=== PATIENT | male | born 1940 | race Hispanic/Latino ===

== ENCOUNTER → 2019-09-01 | Outpatient (CLI) | payer MEDICARE | END | disposition home or self-care (01) | LOC: SHCH 15:36 | PROVIDERS: ATTEND Internal Medicine Cardiovascular Disease | DX: I65.23 Occlusion and stenosis of bilateral carotid arteries (principal) | CPT/HCPCS: 93880 ==

== ENCOUNTER → 2019-12-27 | Outpatient (CLI) | payer MEDICARE | END | disposition home or self-care (01) | LOC: OIH 13:54 | PROVIDERS: ATTEND Family Medicine | DX: M47.816 Spondylosis without myelopathy or radiculopathy, lumbar region (principal); M48.061 Spinal stenosis, lumbar region without neurogenic claudication; M25.78 Osteophyte, vertebrae; Z90.49 Acquired absence of other specified parts of digestive tract; M47.814 Spondylosis without myelopathy or radiculopathy, thoracic region; I70.0 Atherosclerosis of aorta; M25.551 Pain in right hip | CPT/HCPCS: 71046; 72100; 73502 ==

== ENCOUNTER → 2020-02-02 | Outpatient (CLI) | payer MEDICARE | END | disposition home or self-care (01) | LOC: RAH 14:39 | PROVIDERS: ATTEND Family Medicine | DX: M48.07 Spinal stenosis, lumbosacral region (principal); M47.27 Other spondylosis with radiculopathy, lumbosacral region; M25.78 Osteophyte, vertebrae; M51.26 Other intervertebral disc displacement, lumbar region; M06.4 Inflammatory polyarthropathy | CPT/HCPCS: 72148 ==

== ENCOUNTER 2021-02-14 11:49 | Day surgery (SDC) | payer MEDICARE ==
[2021-02-13 15:58] VITALS: BP 177/85
[~2021-02-14] VITALS: Ht 160 cm; Wt 63.7 kg
[2021-02-14 12:05] VITALS: BP 127/67
[2021-02-14] MEDS ORDERED: LIDOCAINE HCL 1% 20 ML VIAL ONE (12:06)
[2021-02-14] MEDS ORDERED: BUPIVACAINE/PF 0.5% 30ML VIAL ONE (12:08)
[2021-02-14] MEDS ORDERED: SODIUM CHLORIDE 0.9% 1000ML 1,000 ML IV ONE (12:08)
[2021-02-14] MEDS ORDERED: METF-444 PO (12:28)
[2021-02-14] MEDS ORDERED: LISI20TA24 PO (12:28)
[2021-02-14] MEDS ORDERED: METO100T14 PO (12:28)
[2021-02-14] MEDS ORDERED: HYDR25TA PO (12:28)
[2021-02-14] MEDS ORDERED: ROSU10TA28 PO (12:28)
[2021-02-14] MEDS ORDERED: IOPAMIDOL 10 ML VIAL ONE (12:50)
[2021-02-14 13:10] VITALS: BP 129/84
[2021-02-14 13:25] VITALS: BP 120/65
[2021-02-14 13:40] VITALS: BP 116/68
[2021-02-14 13:55] VITALS: BP 112/63
== END 2021-02-14 14:00 ==
LOC: DAH 11:49
PROVIDERS: ATTEND Family Medicine Sports Medicine
DX: M51.16 Intervertebral disc disorders with radiculopathy, lumbar region (principal); E78.5 Hyperlipidemia, unspecified; I25.10 Atherosclerotic heart disease of native coronary artery without angina pectoris; Z95.1 Presence of aortocoronary bypass graft; Z90.49 Acquired absence of other specified parts of digestive tract; Z98.890 Other specified postprocedural states; Z20.828 Contact with and (suspected) exposure to other viral communicable diseases; Z79.84 Long term (current) use of oral hypoglycemic drugs; Z79.899 Other long term (current) drug therapy
CPT/HCPCS: 62323; 82948; A4215 ×2; A4221; A4222; A4223; A4606; A4615; A4657; A4663; C9803; J7030; Q9966; U0003; 62320; 77003; J1030; J3490

== ENCOUNTER → 2023-11-16 | Outpatient (CLI) | payer MEDICARE ==
[~2023-11-16] MED LIST: HYDR25TA PO; IOHEXOL-350 75 ML VIAL IV ONE; LISI20TA24 PO; METF-444 PO; METO100T14 PO; ROSU10TA28 PO
== END | disposition home or self-care (01) ==
LOC: RAH 08:00
PROVIDERS: ATTEND Family Medicine
DX: N20.0 Calculus of kidney (principal); K57.90 Diverticulosis of intestine, part unspecified, without perforation or abscess without bleeding; N28.89 Other specified disorders of kidney and ureter; I25.10 Atherosclerotic heart disease of native coronary artery without angina pectoris; Z98.890 Other specified postprocedural states; M47.815 Spondylosis without myelopathy or radiculopathy, thoracolumbar region
CPT/HCPCS: 74170; Q9967

== ENCOUNTER 2024-11-21 09:48 | Emergency (ER) | payer MEDICARE ==
[~2024-11-21] VITALS: Ht 157.5 cm; Wt 63.5 kg
[~2024-11-21 09:48] MED LIST changes: -IOHEXOL-350 75 ML VIAL IV ONE; -ROSU10TA28 PO; +ROSU10TA72 PO
[2024-11-21] MEDS: PANTOPrazole 40 MG/VIAL IVP ONE (10:30)
[2024-11-21 10:45] LABS: BASOPHILS # (AUTO) 0.03 K/uL (0.00-0.20); BASOPHILS % (AUTO) 0.3 % (0.0-5.0); EOSINOPHILS # (AUTO) 0.03 K/uL (0.00-0.70); EOSINOPHILS % (AUTO) 0.3 % (0.0-8.0); HEMATOCRIT 39.8 % (42-54); IMMATURE GRANULOCYTE ABSOLUTE 0.11 K/uL (0-1); LYMPHOCYTES # (AUTO) 0.7 K/uL (1.0-4.8); LYMPHOCYTES % (AUTO) 6.8 % (21.0-51.0); MEAN CORPUSCULAR HEMOGLOBIN 33.3 pg (27.0-33.0); MEAN CORPUSCULAR HGB CONC 33.7 g/dL (32.0-36.0); MEAN CORPUSCULAR VOLUME 98.8 fL (79-99); MONOCYTES # (AUTO) 0.9 K/uL (0.1-1.0); MONOCYTES % (AUTO) 8.9 % (3.0-13.0); NEUTROPHILS # (AUTO) 7.9 K/uL (1.8-7.7); NEUTROPHILS % (AUTO) 82.6 % (40.0-77.0); PLATELET COUNT (AUTO) 148 K/uL (130-400); RED BLOOD CELL COUNT(AUTO) 4.03 MIL/uL (4.50-6.20); RED CELL DISTRIBUTION WIDTH 12.4 % (11.0-15.5); WHITE BLOOD COUNT (AUTO) 9.6 K/uL (4.8-10.8)
[2024-11-21 10:55] LABS: INR 0.97 (0.85-1.15); PROTHROMBIN TIME 10.9 SEC (9.6-11.6)
[2024-11-21 10:57] LABS: PARTIAL THROMBOPLASTIN TIME 26.7 SEC (26.3-35.5)
--- NOTE | 2024-11-21 10:57 | EKG ---
[facility] Test Date: 2024-11-21 Test Time: 10:03:13 Pat Name: PAT BURR Department: [facility] Room: Gender: Supervisor Statement Clerks: 0723 : 1940 Requested By: JOANAN LAMA Order Number: [id number] Reading MD: Юлия Diallo Measurements Intervals [place] Rate: 64 P: 88 MT: 108 QRS: 47 QRSD: 119 T: 64 QT: 423 QTc: 436 Interpretive Statements Sinus rhythm Nonspecific intraventricular conduction delay No previous ECG available for comparison Electronically Signed On 11-21-2024 18:08:51 SENIOR NET C DEVELOPER by Юлия Diallo Please click the below link to view image of tracing.
[2024-11-21 11:03] LABS: CREATININE 1.1 mg/dL (0.5-1.3); POTASSIUM 3.5 mmol/L (3.5-5.1)
[2024-11-21 11:08] LABS: MAGNESIUM 1.8 mg/dL (1.80-2.40)
--- NOTE | 2024-11-21 11:25 | ERN ---
General Chief Complaint: Chest Pain Stated Complaint: CP X 3 DAYS Time Seen by MD: 09:50 Source: patient, family History of Present Illness Initial Comments PATIENT IS A AN 84-YEAR-OLD GENTLEMAN COMING IN TO BE EVALUATED FOR CHEST PRESSURE. PER PATIENT THIS HAS BEEN ONGOING FOR THREE DAYS. HE ALSO STATES THAT IS PRESSURE BEGAN SHORTLY AFTER STARTING HIS PREDNISONE TREATMENT FOR URI SYMPTOMS. NO FEVER OR CHILLS CURRENTLY. Allergies: Coded Allergies: No Known Allergies (Verified Allergy, Unknown, 02/12/21) Home Meds Reported Medications Rosuvastatin Calcium (Rosuvastatin Calcium) 10 Mg Tablet, 10 MG PO DAILY, TAB 02/14/21 Metoprolol Tartrate (Metoprolol Tartrate) 100 Mg Tablet, 100 MG PO DAILY, TAB 02/14/21 Hydrochlorothiazide (Hydrochlorothiazide) 25 Mg Tablet, 25 MG PO DAILY, TAB 02/14/21 Lisinopril (Lisinopril) 20 Mg Tablet, 20 MG PO DAILY, TAB 02/14/21 Metformin HCl (Metformin HCl) 500 Mg Tablet, 500 MG PO DAILY, TAB 02/14/21 Past Medical History Past Medical History: Diabetes-Type II, High Cholesterol, Hypertension, [place] Past Surgical History: Cholecystectomy, CABG, Other Surgical History Other: HERNIA ROS Dictation CONSTITUTIONAL: NO CHILLS, NO FEVER, NO WEAKNESS, NO DIAPHORESIS, NO MALAISE. HEAD/FACE: NO SIGNS OF TRAUMA. EENT: NO EYE PAIN, NO BLURRED VISION, NO TEARING, NO DOUBLE VISION, NO EAR PAIN, NO EAR DISCHARGE, NO NOSE PAIN, NO NASAL CONGESTION, NO THROAT PAIN, NO THROAT SWELLING, NO MOUTH PAIN. RESPIRATORY: NO COUGH, NO ORTHOPNEA, NO SOB, NO STRIDOR, NO WHEEZING. CARDIOVASCULAR: CHEST PAIN, NO EDEMA, NO PALPITATIONS, NO SYNCOPE. GASTROINTESTINAL/ABDOMINAL: NO ABDOMINAL PAIN, NO CONSTIPATION, NO DIARRHEA, NO NAUSEA, NO VOMITING. GENITOURINARY: NO ABNORMAL DISCHARGE, NO DYSURIA, NO FREQUENT URINATION, NO HEMATURIA. NO COMPLAINTS OF PAIN IN THE GENITALS. MUSCULOSKELETAL: NO BACK PAIN, NO GOUT, NO JOINT PAIN, NO JOINT SWELLING, NO MUSCLE PAIN, NO MUSCLE STIFFNESS, NO NECK PAIN. INTEGUMENTARY: NO CHANGE IN COLOR, NO CHANGE IN HAIR/NAILS, NO DRYNESS, NO LESION, NO LUMPS, NO RASH. NEUROLOGICAL/PSYCH: NO ANXIETY, NOT DEPRESSED, NO EMOTIONAL PROBLEM, NO HEADACHE, NO NUMBNESS, NO PRE-EXISTING DEFICIT, NO HISTORY OF SEIZURES, NO ARJUN MORS, NO WEAKNESS. HEMATOLOGIC/LYMPHATIC: NOT ANEMIC, NO HISTORY OF BLOOD CLOTS, NO APPARENT BLEEDING, NO BRUISING, GLANDS NOT SWOLLEN. ALL SYSTEMS NEGATIVE, EXCEPT NOTED. Physical Exam Physical Exam Dictation VITAL SIGNS: REVIEWED. GENERAL APPEARANCE: ALERT, ORIENTED X3, NO ACUTE DISTRESS, OBESE. HEAD AND FACE: NON-TRAUMATIC. EYES: PERRL, PINK CONJUNCTIVAS, EYELID NO TRAUMA, ANTERIOR CHAMBER CLEAR. EARS: PINNAS INTACT AND NO SIGNS OF TRAUMA OR ERYTHEMA. EAR CANALS CLEAR AND NO DISCHARGE. TMS NO ERYTHEMA. NOSE: NO DISCHARGE, NO BLEEDING. OROPHARYNX: MOUTH NORMAL, TEETH NO CARIES, TONGUE PINK. PHARYNX CLEAR, NO ERYTHEMA. TONSILS NO EXUDATES, NO ABSCESSES NOTED. MUCOUS MEMBRANE MOIST. NECK: SUPPLE, NON-TENDER, NO THYROMEGALY, NO MASSES, NO JVD, NO BRUITS. BREAST: DEFERRED. CHEST: NO TENDERNESS, NO CREPITUS, NO PARADOXICAL MOVEMENT, NO RETRACTIONS. LUNGS: CLEAR, WELL-VENTILATED, SYMMETRIC, NO RALES, NO WHEEZING, NO RHONCHI, NO STRIDOR, GOOD BREATH SOUNDS BILATERALLY. HEART: REGULAR RATE, REGULAR RHYTHM, NO MURMUR, NO GALLOPS. VASCULAR: NO PERIPHERAL EDEMA. ABDOMEN: SOFT, POSITIVE BOWEL SOUNDS, NONDISTENDED, NO GUARDING, NONTENDER, NO REBOUND, NO MASSES NO HEPATOMEGALY, NO SPLENOMEGALY, NO CRUZ'S SIGN, NO HERNIAS. RECTAL: DEFERRED. GENITAL: DEFERRED. NEUROLOGICAL: NORMAL SPEECH, GROSS MOTOR FUNCTION INTACT, GROSS SENSORY FUNCTION INTACT. MUSCULOSKELETAL: NECK NONTENDER, FULL RANGE OF MOTION, BACK NONTENDER, FULL RANGE OF MOTION. EXTREMITIES: NONTENDER, FULL RANGE OF MOTION. SKIN: COLOR PINK, DRY, NO TURGOR, NO RASH, NO LACERATIONS, NO ABRASIONS, NO CONTUSIONS. LYMPHATICS: DEFERRED. Results Laboratory and Microbiology Lab and Micro Result Laboratory Tests Test 11/21/24 10:35 11/21/24 11:40 11/21/24 14:13 White Blood Count 9.6 K/uL (4.8-10.8) Red Blood Count 4.03 MIL/uL (4.50-6.20) L Hemoglobin 13.4 g/dL (14.0-18.0) L Hematocrit 39.8 % (42-54) L Mean Corpuscular Volume 98.8 fL (79-99) Mean Corpuscular Hemoglobin 33.3 pg (27.0-33.0) H Mean Corpuscular Hemoglobin Concent 33.7 g/dL (32.0-36.0) Red Cell Distribution Width 12.4 % (11.0-15.5) Platelet Count 148 K/uL (130-400) Mean Platelet Volume 10.9 fL (7.5-10.5) H Immature Granulocyte % (Auto) 1.1 % (0-1) H Neutrophils (%) (Auto) 82.6 % (40.0-77.0) H Lymphocytes (%) (Auto) 6.8 % (21.0-51.0) L Monocytes (%) (Auto) 8.9 % (3.0-13.0) Eosinophils (%) (Auto) 0.3 % (0.0-8.0) Basophils (%) (Auto) 0.3 % (0.0-5.0) Neutrophils # (Auto) 7.9 K/uL (1.8-7.7) H Lymphocytes # (Auto) 0.7 K/uL (1.0-4.8) L Monocytes # (Auto) 0.9 K/uL (0.1-1.0) Eosinophils # (Auto) 0.03 K/uL (0.00-0.70) Basophils # (Auto) 0.03 K/uL (0.00-0.20) Absolute Immature Granulocyte (auto 0.11 K/uL (0-1) Nucleated Red Blood Cells 0.0 % (0.0-0.19) White Cell Morphology Comment See comments Prothrombin Time 10.9 SEC (9.6-11.6) Prothromb Time International Ratio 0.97 (0.85-1.15) Activated Partial Thromboplast Time 26.7 SEC (26.3-35.5) Sodium Level 141 mmol/L (136-145) Potassium Level 3.5 mmol/L (3.5-5.1) Chloride Level 104 mmol/L (101-111) Carbon Dioxide Level 31 mmol/L (21-32) Blood Urea Nitrogen 22 mg/dL (7-18) H Creatinine 1.1 mg/dL (0.5-1.3) Glomerular Filtration Rate Calc 66 mL/min (>90) Random Glucose 133 mg/dL (70-105) H Total Calcium 8.4 mg/dL (8.5-10.1) L Magnesium Level 1.80 mg/dL (1.80-2.40) Total Creatine Kinase 55 U/L (21-232) Troponin I High Sensitivity 13 ng/L (4-75) 13 ng/L (4-75) B-Type Natriuretic Peptide 652 pg/mL (0-100) H Urine Color LIGHT-YELLOW (YELLOW) Urine Appearance CLEAR (CLEAR) Urine pH 5.0 (5.0-8.0) Urine Specific [place] 1.015 (1.001-1.031) Urine Protein NEGATIVE mg/dL (NEGATIVE) Urine Glucose (UA) 50 mg/dL (NEGATIVE) H Urine Ketones NEGATIVE mg/dL (NEGATIVE) Urine Occult Blood SMALL (NEGATIVE) H Urine Nitrate NEGATIVE (NEGATIVE) Urine Bilirubin NEGATIVE mg/dL (NEGATIVE) Urine Urobilinogen 0.2 mg/dL (0.2-1.0) Urine Leukocyte Esterase NEGATIVE Azeb/uL Urine RBC 2-5 /HPF (0-1) H Urine WBC 0-1 /HPF (0-1) Urine Bacteria None /HPF (None Seen) Labs Reviewed?: Yes EKG/XRAY/US/CT/MRI EKG Comment 11/21/2024 TIME 10:03 A.M. VENTRICULAR RATE 64 SINUS RHYTHM LA [address] WAVE ELEVATION OR DEPRESSION X-RAY Comment [address] [address] [place] [address] IMAGING REPORT Signed PATIENT: PAT BURR MR#: [id number] : 1940 SEX: M AGE: 84 LOCATION: [facility] ORDER [id number] STATUS: REG ER REPORT#: [id number] SERVICE 1001 REASON: cp ORDERING PHYSICIAN: JOANNA LAMA MD PROCEDURE: CXR1VW - CHEST 1VW Exam Type: CHEST 1VW Clinical Information: cp Comparison: None Findings: There is cardiomegaly and there is status post median sternotomy. The lungs are clear of infiltrates. Impression: Clear lungs. DICTATED BY: VY STORY MD DATE: 11/21/24 112 ELECTRONICALLY SIGNED BY: VY STORY MD DATE: 11/21/24 112 MDM MDM: DIFFERENTIAL DIAGNOSIS: CHF EXACERBATION, GASTRITIS, ED Course Orders Procedure Category Date Status Time Cbc With Differential LAB 11/21/24 Complete 09:53 12 Lead Ekg Tracing- EKG 11/21/24 Complete Technical 09:59 Prothrombin Time With LAB 11/21/24 Complete INR 10:01 B-Type Natriuretic LAB 11/21/24 Complete Peptide 10:01 Chest 1vw RAD 11/21/24 Resulted 10:01 Magnesium LAB 11/21/24 Complete 10:01 Creatine Kinase, Total LAB 11/21/24 Complete 10:01 Troponin I High LAB 11/21/24 Complete Sensitivity 10:01 Urinalysis Profile LAB 11/21/24 Complete 10:01 Partial LAB 11/21/24 Complete Thromboplastin Time 10:01 Basic Metabolic Panel LAB 11/21/24 Complete 10:01 Pantoprazole 40mg Inj PHA 11/21/24 Complete (Protonix 40mg Inj 10:30 Troponin I High LAB 11/21/24 Complete Sensitivity 11:16 Furosemide 20mg Vial PHA 11/21/24 Complete (Lasix 20mg Vial) 11:30 Current Medications Medications (Trade) Dose Ordered Sig/Lily Route PRN Reason Start Time Stop Time Status Last Admin Dose Admin Furosemide (LASix 20MG VIAL) 20 mg ONCE ONCE IV 11/21/24 11:30 11/21/24 11:31 DC 11/21/24 11:30 Pantoprazole Sodium (PROTonix 40MG INJ) 40 mg ONCE ONCE IVP 11/21/24 10:30 11/21/24 10:31 DC 11/21/24 10:30 Vital Signs Date Time Temp Pulse Resp B/P (MAP) Pulse Ox O2 Delivery O2 Flow Rate FiO2 11/21/24 14:35 98.8 88 20 158/63 100 Room Air* 0 21 11/21/24 09:48 98.6 68 20 178/90 98 Room Air 0 DX & DISP Departure Condition: Stable Referrals: LITTLE BURKS MD (PCP) JOANNA LAMA MD Nov 21, 2024 11:25
[2024-11-21] MEDS: furoSEMIDE 20MG VIAL IV ONE (11:30)
--- NOTE | 2024-11-21 14:00 | NUR ---
ASSUMED CARE AT THIS TIME. BROUGHT IN FROM ER LOBBY INTO INTERNAL WAITING AREA FOR MED PASS AND ASSESSMENT.
[2024-11-21 14:26] LABS: APPEARANCE,URINE CLEAR (CLEAR); BILIRUBIN,URINE NEGATIVE (NEGATIVE); COLOR,URINE LIGHT-YELLOW (YELLOW); GLUCOSE, URINE (UA) 50 mg/dL (NEGATIVE); KETONES,URINE NEGATIVE (NEGATIVE); LEUKOCYTE ESTERASE ,URINE NEGATIVE Leu/uL (NEGATIVE); NITRATE,URINE NEGATIVE (NEGATIVE); OCCULT BLOOD,URINE SMALL (NEGATIVE); PROTEIN,URINE NEGATIVE (NEGATIVE); UROBILINOGEN,URINE 0.2 mg/dL (0.2-1.0)
[2024-11-21 14:44] LABS: ADD UA MICROSCOPIC YES
[2024-11-21 14:46] LABS: MUCUS,URINE RARE LPF (None Seen); WBC,URINE 0-1 /HPF (0-1)
[2024-11-21 15:01] VITALS: BP 151/62; PULSE 86; RESP 20; TEMP 98.8; O2SAT 98
== END 2024-11-21 15:03 | disposition home or self-care (01) ==
LOC: EDH 09:48
DX: R07.89 Other chest pain (principal); E11.9 Type 2 diabetes mellitus without complications; E78.00 Pure hypercholesterolemia, unspecified; I10 Essential (primary) hypertension; Z79.84 Long term (current) use of oral hypoglycemic drugs; Z79.899 Other long term (current) drug therapy; Z90.49 Acquired absence of other specified parts of digestive tract; Z95.1 Presence of aortocoronary bypass graft
CPT/HCPCS: 99285; 96374; 71045; 96375; 82550; 83735; 84484 ×2; 80048; 83880; 85025; 85610; 85730; 81001; 36415; 93005; J1940; J2470

== ENCOUNTER → 2024-11-22 | Outpatient (CLI) | payer MEDICARE ==
--- NOTE | 2024-11-22 17:19 | HMCSR ---
APPROVED REPORT Bilateral Lower Extremity Venous Study for DVT., Venous Competence. Indications i87.1, i87.2 Vein Imaging CFV (R): Normal flow, augmentation and compression. No evidence of DVT. 9.4mm 2517ms of reflux. SFJ (R): Normal flow, augmentation and compression. No evidence of DVT. FEM (R): Normal flow, augmentation and compression. No evidence of DVT. POP (R): Normal flow, augmentation and compression. No evidence of DVT. DFV (R): Normal flow, augmentation and compression. No evidence of DVT. PTV (R): Normal flow, augmentation and compression. No evidence of DVT. Peroneals (R): Normal flow, augmentation and compression. No evidence of DVT. CFV (L): Normal flow, augmentation and compression. No evidence of DVT. 9.2mm 833ms of reflux. SFJ (L): Normal flow, augmentation and compression. No evidence of DVT. FEM (L): Normal flow, augmentation and compression. No evidence of DVT. POP (L): Normal flow, augmentation and compression. No evidence of DVT. DFV (L): Normal flow, augmentation and compression. No evidence of DVT. PTV (L): Normal flow, augmentation and compression. No evidence of DVT. Peroneals (L): Normal flow, augmentation and compression. No evidence of DVT. Technologist Impression Deep veins of the bilateral lower extremities appear patent and compressible without thrombus. Deep venous reflux noted in the RCFV. Superficial venous insufficiency noted in the RGSV at calf. RGSV junction 4.7mm 0.0ms thigh 1.4mm 0.0ms knee 1.6mm 0.0ms calf 2.9mm 1933ms RSSV prox 1.3mm 0.0ms mid 1.7mm 0.0ms LGSV junction 3.0mm 0.0ms not seen distally LSSV prox 1.9mm 0.0ms mid 2.4mm 0.0ms Conclusion Deep venous reflux noted in the RCFV. Superficial venous insufficiency noted in the RGSV at calf. No DVT Conclusion Deep venous reflux noted in the RCFV. Superficial venous insufficiency noted in the RGSV at calf. No DVT
== END | disposition home or self-care (01) ==
LOC: SHCH 10:52
PROVIDERS: ATTEND Internal Medicine Cardiovascular Disease
DX: I87.2 Venous insufficiency (chronic) (peripheral) (principal); I87.1 Compression of vein
CPT/HCPCS: 93970

== ENCOUNTER → 2024-12-01 | Outpatient (CLI) | payer MEDICARE ==
--- NOTE | 2024-12-01 15:15 | HMCIMG ---
CT LOW EXT W/O CONTRAST REASON: BILAT FEET, INFLAMMATORY POLYARTHOPATHY Technique: Axial images are obtained from distal tibia and fibula through the feet, both feet were included. Sagittal and coronal reconstruction images were then performed. Exam was performed without IV contrast. Comparison: None FINDINGS: There is normal appearance of the distal tibia and fibula. Talus and calcaneus appear unremarkable. Bones of the ethmoid midfoot appear normal as do metatarsals and phalanges. There is no evidence of fracture or osteomyelitis. Soft tissues appear normal. There are no focal masses. There is no visible edema. IMPRESSION: 1. Negative noncontrast to exam of the right and left foot and ankle.
== END | disposition home or self-care (01) ==
LOC: RAH 12:43
PROVIDERS: ATTEND Family Medicine
DX: M06.4 Inflammatory polyarthropathy (principal)
CPT/HCPCS: 73700

== ENCOUNTER 2025-03-01 15:43 | Emergency (ER) | payer MEDICARE ==
[~2025-03-01] VITALS: Ht 160 cm; Wt 63.5 kg
[2025-03-01 16:17] LABS: BASOPHILS # (AUTO) 0.02 K/uL (0.00-0.20); BASOPHILS % (AUTO) 0.3 % (0.0-5.0); EOSINOPHILS # (AUTO) 0.11 K/uL (0.00-0.70); EOSINOPHILS % (AUTO) 1.6 % (0.0-8.0); HEMATOCRIT 32.9 % (42-54); IMMATURE GRANULOCYTE ABSOLUTE 0.04 K/uL (0-1); LYMPHOCYTES % (AUTO) 14.2 % (21.0-51.0); MEAN CORPUSCULAR HEMOGLOBIN 34.7 pg (27.0-33.0); MEAN CORPUSCULAR VOLUME 101.9 fL (79-99); MONOCYTES # (AUTO) 0.7 K/uL (0.1-1.0); NEUTROPHILS % (AUTO) 73.3 % (40.0-77.0); PLATELET COUNT (AUTO) 218 K/uL (130-400); RED BLOOD CELL COUNT(AUTO) 3.23 MIL/uL (4.50-6.20); RED CELL DISTRIBUTION WIDTH 12.6 % (11.0-15.5); WHITE BLOOD COUNT (AUTO) 6.8 K/uL (4.8-10.8)
[2025-03-01 16:30] LABS: CREATININE 1.2 mg/dL (0.5-1.3); POTASSIUM 3.8 mmol/L (3.5-5.1)
--- NOTE | 2025-03-01 17:01 | HMCIMG ---
US VENOUS DOPPLER UNILATERAL HISTORY: Leg swelling COMPARISON: None TECHNIQUE: Left lower extremity venous Doppler ultrasound study was performed. FINDINGS: The left common femoral, femoral, popliteal, and posterior tibial veins are visualized. Normal flow with augmentation and compressibilities are demonstrated. Left greater saphenous vein is patent. IMPRESSION: 1. No evidence of deep venous thrombosis is seen.
--- NOTE | 2025-03-01 17:05 | HMCIMG ---
US ARTERIAL UNILA LOW EXT DUPL HISTORY: Leg pain COMPARISON: None TECHNIQUE: Left lower extremity arterial Doppler ultrasound study was performed. FINDINGS: Left groin hematoma is seen measuring 4 x 4.5 x 1.5 cm. Left femoral stent is seen. Triphasic and biphasic arterial waveforms are seen in the left superficial femoral, tibial arteries. Abnormal monophasic arterial waveform is seen in the left posterior tibial, anterior tibial and dorsalis pedal arteries. Elevated velocity is seen of the left common femoral artery suspicious for stenosis. On the left, the peak systolic velocity of the common femoral artery is 215 cm/s, the proximal femoral artery is 185 cm/s, the mid femoral artery is 101 cm/s, the distal femoral artery is 131 cm/s, the proximal popliteal artery is 97 cm/s, the distal popliteal artery is 66 cm/s, the anterior tibial artery is 31 cm/s, the posterior tibial artery artery is 109 cm/s,and the dorsalis pedal artery is 34 cm/s. IMPRESSION: 1. Atherosclerotic disease. 2. Abnormal monophasic arterial waveform is seen in the left posterior tibial, anterior tibial and dorsalis pedal arteries. Elevated velocity is seen of the left common femoral artery suspicious for stenosis.
[2025-03-01] MEDS ORDERED: GABA300T26 PO (17:07)
[2025-03-01] MEDS ORDERED: [UNRECOGNIZED DRUG - CODE] PO (17:09)
--- NOTE | 2025-03-01 17:32 | HMCIMG ---
PORTABLE CHEST RADIOGRAPH INDICATION: chest pain COMPARISON: None FINDINGS: Median sternotomy wires are in appropriate alignment. Heart size is normal. Mild calcific plaque is present along the aortic arch moon. Left perihilar cardiac surgical clips. The pulmonary vascularity and quyen appear normal. No abnormal pulmonary parenchymal opacity or consolidation identified. No significant pleural effusion noted. No pneumothorax detected. Mid thoracic spine neurostimulator lead tips. IMPRESSION: No radiographic evidence for any acute cardiopulmonary process.
--- NOTE | 2025-03-01 18:07 | ERN ---
General Chief Complaint: Lower Extremity Pain/Injury Stated Complaint: PAIN TO INNER LEFT THIGH Time Seen by MD: 15:46 History of Present Illness Initial Comments 84-year-old male presents for bruising to the left groin. Last week patient had an angiogram of the leg with stent placement of the left femoral artery. Reports that he had some swelling but today there is a lot of bruising which was concerning. No other symptoms. Minimal pain. Allergies: Coded Allergies: No Known Allergies (Verified Allergy, Unknown, 02/12/21) Home Meds Reported Medications Vit D3/Folic/B6/B12/Acetylcyst ([place] Tablet) 20 Mcg-1MG Tablet, 1 EACH PO DAILY, TAB 03/01/25 Gabapentin Enacarbil (Horizant) 300 Mg Tab.er.24h, 300 MG PO DAILY, TAB 03/01/25 Rosuvastatin Calcium (Rosuvastatin Calcium) 10 Mg Tablet, 10 MG PO DAILY, TAB 02/14/21 Metoprolol Tartrate (Metoprolol Tartrate) 100 Mg Tablet, 100 MG PO DAILY, TAB 02/14/21 Hydrochlorothiazide (Hydrochlorothiazide) 25 Mg Tablet, 25 MG PO DAILY, TAB 02/14/21 Lisinopril (Lisinopril) 20 Mg Tablet, 20 MG PO DAILY, TAB 02/14/21 Metformin HCl (Metformin HCl) 500 Mg Tablet, 500 MG PO DAILY, TAB 02/14/21 Past Medical History Past Medical History: Diabetes-Type II, High Cholesterol, Hypertension, [place] Past Surgical History: Cholecystectomy, CABG, Other Surgical History Other: HERNIA ROS Dictation CONSTITUTIONAL: No chills, no fever, no weakness, no diaphoresis, no malaise. HEAD/FACE: No signs of trauma. EENT: No eye pain, no blurred vision, no tearing, no double vision, no ear pain, no ear discharge, no nose pain, no nasal congestion, no throat pain, no throat swelling, no mouth pain. RESPIRATORY: No cough, no orthopnea, no SOB, no stridor, no wheezing. CARDIOVASCULAR: No chest pain, no edema, no palpitations, no syncope. GASTROINTESTINAL/ABDOMINAL: No abdominal pain, no constipation, no diarrhea, no nausea, no vomiting. GENITOURINARY: No abnormal discharge, no dysuria, no frequent urination, no hematuria. No complaints of pain in the genitals. MUSCULOSKELETAL: No back pain, no gout, no joint pain, no joint swelling, no muscle pain, no muscle stiffness, no neck pain. INTEGUMENTARY: No change in color, no change in hair/nails, no dryness, no lesion, no lumps, no rash. NEUROLOGICAL/PSYCH: No anxiety, not depressed, no emotional problem, no headache, no numbness, no pre-existing deficit, no history of seizures, no tremors, no weakness. HEMATOLOGIC/LYMPHATIC: Not anemic, no history of blood clots, no apparent bleeding, no bruising, glands not swollen. All Systems Negative, Except as Noted. Physical Exam Physical Exam Dictation VITAL SIGNS: Reviewed. GENERAL APPEARANCE: Alert, oriented x3, no acute distress, obese. HEAD AND FACE: Non-traumatic. EYES: PERRL, pink conjunctivas, eyelid no trauma, anterior chamber clear. EARS: Pinnas intact and no signs of trauma or erythema. Ear canals clear and no discharge. TMs no erythema. NOSE: No discharge, no bleeding. OROPHARYNX: Mouth normal, teeth no caries, tongue pink. Pharynx clear, no erythema. Tonsils no exudates, no abscesses noted. Mucous membrane moist. NECK: Supple, non-tender, no thyromegaly, no masses, no JVD, no bruits. BREAST: Deferred. CHEST: No tenderness, no crepitus, no paradoxical movement, no retractions. LUNGS: Clear, well-ventilated, symmetric, no rales, no wheezing, no rhonchi, no stridor, good breath sounds bilaterally. HEART: Regular rate, regular rhythm, no murmur, no gallops. VASCULAR: No peripheral edema. ABDOMEN: Soft, positive bowel sounds, nondistended, no guarding, nontender, no rebound, no masses no hepatomegaly, no splenomegaly, no Rouse's sign, no hernias. RECTAL: Deferred. GENITAL: Deferred. NEUROLOGICAL: Normal speech, gross motor function intact, gross sensory function intact. MUSCULOSKELETAL: Neck nontender, full range of motion, back nontender, full range of motion. EXTREMITIES: Nontender, full range of motion. SKIN: Color pink, dry, no turgor, no rash, no lacerations, no abrasions, no contusions. LYMPHATICS: Deferred. Results Laboratory and Microbiology Lab and Micro Result Laboratory Tests Test 03/01/25 16:00 White Blood Count 6.8 K/uL (4.8-10.8) Red Blood Count 3.23 MIL/uL (4.50-6.20) L Hemoglobin 11.2 g/dL (14.0-18.0) L Hematocrit 32.9 % (42-54) L Mean Corpuscular Volume 101.9 fL (79-99) H Mean Corpuscular Hemoglobin 34.7 pg (27.0-33.0) H Mean Corpuscular Hemoglobin Concent 34.0 g/dL (32.0-36.0) Red Cell Distribution Width 12.6 % (11.0-15.5) Platelet Count 218 K/uL (130-400) Mean Platelet Volume 9.8 fL (7.5-10.5) Immature Granulocyte % (Auto) 0.6 % (0-1) Neutrophils (%) (Auto) 73.3 % (40.0-77.0) Lymphocytes (%) (Auto) 14.2 % (21.0-51.0) L Monocytes (%) (Auto) 10.0 % (3.0-13.0) Eosinophils (%) (Auto) 1.6 % (0.0-8.0) Basophils (%) (Auto) 0.3 % (0.0-5.0) Neutrophils # (Auto) 5.0 K/uL (1.8-7.7) Lymphocytes # (Auto) 1.0 K/uL (1.0-4.8) Monocytes # (Auto) 0.7 K/uL (0.1-1.0) Eosinophils # (Auto) 0.11 K/uL (0.00-0.70) Basophils # (Auto) 0.02 K/uL (0.00-0.20) Absolute Immature Granulocyte (auto 0.04 K/uL (0-1) Nucleated Red Blood Cells 0.0 % (0.0-0.19) Sodium Level 140 mmol/L (136-145) Potassium Level 3.8 mmol/L (3.5-5.1) Chloride Level 100 mmol/L (101-111) L Carbon Dioxide Level 29 mmol/L (21-32) Blood Urea Nitrogen 23 mg/dL (7-18) H Creatinine 1.2 mg/dL (0.5-1.3) Glomerular Filtration Rate Calc 60 mL/min (>90) Random Glucose 183 mg/dL (70-105) H Total Calcium 9.1 mg/dL (8.5-10.1) Total Creatine Kinase 72 U/L (21-232) # Troponin I High Sensitivity 10.2 ng/L (4-75) MDM CC: Bruising to the left leg status post catheterization Historian: Patient Comorbidities: Diabetes, dyslipidemia, hypertension, previous [place], recent edwardo terization Limitations by social determinants of health: None Initial concern for possible pseudoaneurysm versus hematoma versus DVT or other. Vital signs: Stable, remained stable here in the ER. Labs (independently interpreted by me ): Macrocytic anemia 11.2 platelets stable no leukocytosis. Chemistry panel is unremarkable. CK is normal. Troponin is normal. EKG (independently ordered and interpreted by me): Normal sinus rhythm, rate of 81, normal axis, early R-wave progression, intervals are stable no STEMI. There are a few PACs. CXR (independently interpreted by me): No cardiomegaly pleural effusions or focal infiltrate. DVT study independently interpreted by me: No DVT. Arterial ultrasound: No signs of pseudoaneurysm, Extravazation or bleed. There is a left groin hematoma measuring 4 x 4.5 x 1.5. The left middle stent is seen and intact. There was no signs of major bleeding or anemia. Stable vital signs. Very low suspicion for any life threats at this time. We will DC to PCP follow up. ED Course Orders Procedure Category Date Status Time Cardiac Panel LAB 03/01/25 Complete 15:51 Cbc With Differential LAB 03/01/25 Complete 15:51 Basic Metabolic Panel LAB 03/01/25 Complete 15:51 12 Lead Ekg Tracing- EKG 03/01/25 Logged Technical 15:51 Chest 1vw RAD 03/01/25 Resulted 15:51 Us Venous Doppler US 03/01/25 Resulted Unilateral 15:51 Us Arterial Unila Low US 03/01/25 Resulted Ext Dupl 15:51 Vital Signs Date Time Temp Pulse Resp B/P (MAP) Pulse Ox O2 Delivery O2 Flow Rate FiO2 03/01/25 16:22 97.5 83 16 131/60 99 Room Air* 0 21 03/01/25 15:45 97.5 83 16 131/60 99 Room Air 0 DX & DISP Disposition: Discharge Departure Impression: Primary Impression: Traumatic ecchymosis of left thigh Condition: Stable Additional Instructions: There are no dangerous findings on your workup here today. You EKGs normal. Your chest x-ray is normal. Your blood work (CBC, BNP, CK, troponin) is normal. The venous and arterial ultrasounds of your legs are unremarkable. I recommend that you follow up with the surgeon who performed the procedure if you have any concerns. Return to the emergency department as needed. Referrals: LITTLE BURKS MD (PCP) GARY MCMANUS DO Mar 01, 2025 18:07
[2025-03-01 18:22] VITALS: BP 128/64; PULSE 84; RESP 16; TEMP 97.5; O2SAT 99
--- NOTE | 2025-03-02 06:38 | EKG ---
[facility] Test Date: 2025-03-01 Test Time: 15:56:09 Pat Name: PAT BURR Department: [facility] Room: Gender: Male Acetylene Burner: [id number] : 1940 Requested By: GARY MCMANUS Order Number: [id number] Reading MD: Measurements Intervals [place] Rate: 81 P: 28 [place]: 155 QRS: 17 QRSD: 99 T: 36 QT: 384 QTc: 431 Interpretive Statements Sinus rhythm Atrial premature complexes Inferior infarct, old No previous ECG available for comparison Please click the below link to view image of tracing.
== END 2025-03-01 18:27 | disposition home or self-care (01) ==
LOC: EDH 15:43
DX: S70.12XA Contusion of left thigh, initial encounter (principal); M79.662 Pain in left lower leg; E11.9 Type 2 diabetes mellitus without complications; E78.00 Pure hypercholesterolemia, unspecified; I10 Essential (primary) hypertension; Z79.84 Long term (current) use of oral hypoglycemic drugs; Z79.899 Other long term (current) drug therapy; Z90.49 Acquired absence of other specified parts of digestive tract; Z95.1 Presence of aortocoronary bypass graft; Z95.5 Presence of coronary angioplasty implant and graft; X58.XXXA Exposure to other specified factors, initial encounter; Y93.89 Activity, other specified; Y92.89 Other specified places as the place of occurrence of the external cause; Y99.8 Other external cause status
CPT/HCPCS: 36415; 71045; 80048; 82550; 84484; 85025; 93005; 93926; 93971; 99284; 99285